=== PATIENT | male | born 1990 | race African-American/Black ===

== ENCOUNTER 2018-02-17 21:43 | Emergency (ER) | payer BC ==
[~2018-02-17] VITALS: Ht 185.4 cm; Wt 110.0 kg
[2018-02-18] MEDS ORDERED: KETOROLAC TROMETHAMINE 60 MG/2 ML VIAL IM ONE (01:30)
[2018-02-18 02:10] LABS: INFLUENZA TYPE A NEGATIVE FOR TYPE A (NEGATIVE); INFLUENZA TYPE B NEGATIVE FOR TYPE B (NEGATIVE)
[2018-02-18] MEDS ORDERED: ACETAMINOPHEN 500 MG TABLET PO ONE (02:30)
[2018-02-18] MEDS ORDERED: CefTRIAXone SODIUM 1 GM/VIAL IM ONE (02:30)
[2018-02-18] MEDS ORDERED: LIDOCAINE HCL/PF 1% 2 ML VIAL IM ONE (02:30)
[2018-02-18 03:25] VITALS: BP 111/63
== END 2018-02-18 03:25 | disposition home or self-care (01) ==
LOC: EMS 21:46
DX: J18.9 Pneumonia, unspecified organism (principal); R50.9 Fever, unspecified
CPT/HCPCS: 71045; 87804; 96372; 99285; J0696; J1885; J3490